=== PATIENT | male | born 1995 | race Caucasian/White ===

== ENCOUNTER 2018-12-11 02:21 | Emergency (ER) | payer OTHER ==
[~2018-12-11] VITALS: Ht 175.3 cm; Wt 73.6 kg
[2018-12-11 02:26] VITALS: BP 137/92; Ht 175.3 cm; Wt 73.6 kg
== END 2018-12-11 03:18 | disposition home or self-care (01) ==
LOC: D.ER 02:21
DX: Z00.00 Encounter for general adult medical examination without abnormal findings (principal); R33.9 Retention of urine, unspecified; F41.9 Anxiety disorder, unspecified

== ENCOUNTER 2019-01-21 21:17 | Emergency (ER) | payer SELFPAY ==
[~2019-01-21] VITALS: Ht 175.3 cm; Wt 72.7 kg
[2019-01-21 21:35] VITALS: Ht 175.3 cm; Wt 72.7 kg
[2019-01-21] MEDS ORDERED: PENICILLIN V P500 MG PO (21:39)
[2019-01-21] MEDS ORDERED: TORADOL10 MG PO (22:15)
[2019-01-21 22:36] VITALS: BP 116/76
== END 2019-01-21 22:37 | disposition home or self-care (01) ==
LOC: D.ER 21:17
DX: S01.01XA Laceration without foreign body of scalp, initial encounter (principal); Y04.2XXA Assault by strike against or bumped into by another person, initial encounter; Y93.89 Activity, other specified; Y92.89 Other specified places as the place of occurrence of the external cause